=== PATIENT | female | born 1980 | race Two or more races ===

== ENCOUNTER 2018-09-17 15:37 | Inpatient (IN) | payer OTHER ==
[2018-09-17 17:14] VITALS: BMI 18.0
--- NOTE | 2018-09-17 18:08 | HP ---
CIWA Score - Admission Criteria [facility] Guidelines: Admission for Medically Managed Detox: Requires at least one of the followin. CIWA greater than 12 2. Seizures within the past 24 hours 3. Delirium tremens within the past 24 hours 4. Hallucinations within the past 24 hours 5. Acute intervention needed for co occurring medical disorder 6. Acute intervention needed for co occurring psychiatric disorder 7. Severe withdrawal that cannot be handled at a lower level of care (continued vomiting, continued diarrhea, abnormal vital signs) requiring intravenous medication and/or fluids 8. Admission ROS S - HPI Allergies/Adverse Reactions: Allergies Allergy/AdvReac Type Severity Reaction Status Date / Time No Known Allergies Allergy Verified 09/17/18 17:39 - Ebola screening Have you traveled outside of the country in the last 21 days: No Have you had contact with anyone from an Ebola affected area: No Have you been sick,other than usual withdrawal symptoms: No Do you have a fever: No Patient History - Patient Medical History Hx Asthma: Yes Hx Cardiac Disorders: No Hx Hypertension: No Hx Seizures: No Hx Diabetes: No Hx Gastrointestinal Disorders: No Hx Sexually Transmitted Disorders: No Hx Renal Disease (ESRD): No Hx Depression: Yes - Patient Surgical History Past Surgical History: No - PPD History Previous Implant?: No - Smoking Cessation Smoking history: Current every day smoker Have you smoked in the past 12 months: Yes Aproximately how many cigarettes per day: 10 - Substances Abused Alcohol Route: Oral Frequency: Daily Amount used: 1 PINT VODKA Age of first use: 35 Date of Last Use: 09/16/18 Crack Route: Smoking Frequency: Daily Amount used: $200 Age of first use: 22 Date of Last Use: 09/17/18 Heroin Route: Injection Frequency: Daily Amount used: 2- BUNDLE Age of first use: 16 Date of Last Use: 09/17/18 Admission Physical Exam S - Vital Signs Vital Signs: Vital Signs - 24 hr 09/17/18 16:35 Temperature 97.5 F L Pulse Rate 76 Respiratory 18 Rate Blood Pressure 109/64 BHS Breath Alcohol Content Breath Alcohol Content: 0 Urine Pregancy Test - Result Urine Test Results: Negative- NO Line Present Urine Drug Screen - Results Drug Screen Negative: No Urine Drug Screen Results: THC-Marijuana, ERASMO-Cocaine, OPI-Opiates, MTD- Methadone, OXY-Oxycodone, FEN-Fentanyl
--- NOTE | 2018-09-17 18:15 | HP ---
CIWA Score Nausea/Vomitin-Mild Nausea/No Vomiting Muscle Tremors: 2 Anxiety: 3 Agitation: 0-Normal Activity Paroxysmal Sweats: 3 Orientation: 0-Oriented Tacttile Disturbances: 0-None Auditory Disturbances: 0-None Visual Disturbances: 0-None Headache: 3-Moderate CIWA-Ar Total Score: 12 - Admission Criteria OASAS Guidelines: Admission for Medically Managed Detox: Requires at least one of the followin. CIWA greater than 12 2. Seizures within the past 24 hours 3. Delirium tremens within the past 24 hours 4. Hallucinations within the past 24 hours 5. Acute intervention needed for co occurring medical disorder 6. Acute intervention needed for co occurring psychiatric disorder 7. Severe withdrawal that cannot be handled at a lower level of care (continued vomiting, continued diarrhea, abnormal vital signs) requiring intravenous medication and/or fluids 8. Admission ROS [facility] Chief Complaint: ETOH WITHDRAWAL SYMPTOMS. Allergies/Adverse Reactions: Allergies Allergy/AdvReac Type Severity Reaction Status Date / Time No Known Allergies Allergy Verified 09/17/18 17:39 History of Present Illness: PATIENT PRESENTS WITH ETOH WITHDRAWAL SX. PATIENT STARTED DRINKING SINCE AGE 11. LAST DRINK THIS MORNING. PATIENT DRINKS 1 PINT OF VODKA DAILY. DRINKS FIRST THING IN THE MORNING AND BINGE DRINKING. PATIENT ALSO ON METHADONE 120MG, LAST DOSE TODAY. RN DOSE VERIFICATION PENDING. PATIENT DENIES HX OF SEIZURES, FALLS AND BLACKOUTS. PATIENT ALSO INJECTING HEROIN DAILY IN ADDITION TO HEROIN. LAST TIME SHE USED WAS TODAY. PATIENT INJECTS 1-2 BUNDLES DAILY. +COCAINE USE. PMH INCLUDES ANXIETY, DEPRESSION, HEP C (UNTREATED) AND ASTHMA. DENIES SI/HI AND SUICIDE ATTEMPTS. Exam Limitations: No Limitations - Ebola screening Have you traveled outside of the country in the last 21 days: No Have you had contact with anyone from an Ebola affected area: No Have you been sick,other than usual withdrawal symptoms: No Do you have a fever: No - Review of Systems Constitutional: Night Sweats, Changes in sleep, Unexplained wgt Loss EENT: reports: Nose Congestion Respiratory: reports: No Symptoms reported Cardiac: reports: No Symptoms Reported GI: reports: Diarrhea, Nausea, Poor Fluid Intake, Abdominal cramping : reports: No Symptoms Reported Musculoskeletal: reports: Back Pain Integumentary: reports: Sweating Neuro: reports: Headache Endocrine: reports: Unexplained Weight Loss Hematology: reports: No Symptoms Reported Psychiatric: reports: Anxious, Depressed Patient History - Patient Medical History Hx Anemia: No Hx Asthma: Yes Hx Chronic Obstructive Pulmonary Disease (COPD): No Hx Cancer: No Hx Cardiac Disorders: No Hx Congestive Heart Failure: No Hx Hypertension: No Hx Hypercholesterolemia: No Hx Pacemaker: No HX Cerebrovascular Accident: No Hx Seizures: No Hx Dementia: No Hx Diabetes: No Hx Gastrointestinal Disorders: No Hx Liver Disease: No Hx Genitourinary Disorders: No Hx Sexually Transmitted Disorders: No Hx Renal Disease (ESRD): No Hx Thyroid Disease: No Hx Human Immunodeficiency Virus (HIV): No Hx Hepatitis C: Yes (NOT TREATED) Hx Depression: Yes Hx Suicide Attempt: No Hx Bipolar Disorder: No Hx Schizophrenia: No - Patient Surgical History Past Surgical History: No Anesthesia Reaction: No - PPD History Previous Implant?: No PPD to be Administered?: Yes - Reproductive History Patient is a Female of Child Bearing Age (11 -55 yrs old): Yes Patient : No - Smoking Cessation Smoking history: Current every day smoker Have you smoked in the past 12 months: Yes Aproximately how many cigarettes per day: 10 Hx Chewing Tobacco Use: No Initiated information on smoking cessation: Yes 'Breaking Loose' booklet given: 09/17/18 - Substances Abused Alcohol Route: Oral Frequency: Daily Amount used: 1 PINT VODKA Age of first use: 35 Date of Last Use: 09/16/18 Crack Route: Smoking Frequency: Daily Amount used: $200 Age of first use: 22 Date of Last Use: 09/17/18 Heroin Route: Injection Frequency: Daily Amount used: 2- BUNDLE Age of first use: 16 Date of Last Use: 09/17/18 Family Disease History - Family Disease History Family History: Denies Admission Physical Exam S - Vital Signs Vital Signs: Vital Signs - 24 hr 09/17/18 16:35 Temperature 97.5 F L Pulse Rate 76 Respiratory 18 Rate Blood Pressure 109/64 - Physical General Appearance: Yes: Disheveled, Thin, Tremorous, Sweating, Anxious HEENTM: Yes: EOMI, Hearing grossly Normal, Normocephalic, Normal Voice, ARMANDO, Pharynx Normal Respiratory: Yes: Chest Non-Tender, Lungs Clear, Normal Breath Sounds, No Respiratory Distress, No Accessory Muscle Use Neck: Yes: No masses,lesions,Nodules, Supple, Trachea in good position Breast: Yes: Breast Exam Deferred Cardiology: Yes: Regular Rhythm, Regular Rate, S1, S2 Abdominal: Yes: Normal Bowel Sounds, Non Tender, Flat Genitourinary: Yes: Within Normal Limits Back: Yes: Normal Inspection, Muscle Spasm Musculoskeletal: Yes: full range of Motion, Gait Steady, Back pain Extremities: Yes: Normal Range of Motion, Non-Tender, Tremors 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, Fully Oriented, Alert, Motor Strength 5/5, Normal Response, Depressed Affect Integumentary: Yes: Normal Color, Warm, Moist, Track Parmar Lymphatic: Yes: Within Normal Limits - Diagnostic (1) Opioid dependence with withdrawal Current Visit: Yes Status: Acute (2) Cocaine dependence Current Visit: Yes Status: Chronic Qualifiers: Substance use status: uncomplicated Qualified Code(s): F14.20 - Cocaine dependence, uncomplicated (3) Tobacco use Current Visit: Yes Status: Chronic (4) Weight loss Current Visit: Yes Status: Acute (5) Asthma Current Visit: Yes Status: Chronic Qualifiers: Asthma severity: mild Asthma complication type: uncomplicated (6) Depressed affect Current Visit: Yes Status: Suspected (7) Methadone maintenance therapy patient Current Visit: Yes Status: Chronic Cleared for Admission [facility] - Detox or Rehab [facility] Level of Care: Medically Managed Detox Regimen/Protocol: Librium [facility] Breath Alcohol Content Breath Alcohol Content: 0 Urine Pregancy Test - Result Urine Test Results: Negative- NO Line Present Urine Drug Screen - Results Drug Screen Negative: No Urine Drug Screen Results: THC-Marijuana, ERASMO-Cocaine, OPI-Opiates, MTD- Methadone, OXY-Oxycodone, FEN-Fentanyl
[2018-09-17] MEDS ORDERED: NICOTINE POLACRILEX 2 MG GUM BC PRN (18:23)
[2018-09-17] MEDS ORDERED: guaiFENesin/D-METHORPHAN HB 10 ML UNIT-DOSE CUPS PO PRN (18:23)
[2018-09-17] MEDS ORDERED: LOPERAMIDE HCL 2 MG CAPSULE PO PRN (18:23)
[2018-09-17] MEDS ORDERED: MAG HYDROX/AL HYDROX/SIMETH 30 ML UNIT-DOSE CUP PO PRN (18:23)
[2018-09-17] MEDS ORDERED: MAGNESIUM HYDROX 2400MG/30ML ORAL SUSPENSION 30 ML CUP PO PRN (18:23)
[2018-09-17] MEDS ORDERED: IBUPROFEN 400 MG TABLET (FP) PO PRN (18:23)
[2018-09-17] MEDS ORDERED: MAGNESIUM CITRATE 300 ML BOTTLE PO PRN (18:23)
[2018-09-17] MEDS ORDERED: MENTHOL/PHENOL 1 EACH UD MM PRN (18:23)
[2018-09-17] MEDS ORDERED: P-EPHED 60MG/TRIPROLIDI 2.5MG TABLET PO PRN (18:23)
[2018-09-17] MEDS ORDERED: chlordiazePOXIDE HCL 25 MG CAPSULE PO PRN (18:25)
[2018-09-17] MEDS ORDERED: MELATONIN 5 MG TABLETS PO PRN (22:00)
[2018-09-17] MEDS: THIAMINE HCL 100 MG TABLET (FP) PO SCH (22:15)
[2018-09-17] MEDS: chlordiazePOXIDE HCL 25 MG CAPSULE PO SCH (22:15)
[2018-09-18] MEDS: chlordiazePOXIDE HCL 25 MG CAPSULE PO SCH ×4 (05:29→22:28)
--- NOTE | 2018-09-18 10:41 | PN ---
S CIWA - CIWA Score Muscle Tremors: None Anxiety: 1-Mildly Anxious Agitation: 1-Slight > Activity Paroxysmal Sweats: No Perspiration Orientation: 0-Oriented Tacttile Disturbances: 0-None Auditory Disturbances: 0-None Visual Disturbances: 0-None Headache: 0-None Present BHS Progress Note (SOAP) Subjective: Pt states she is tired after not sleeping for several days prior to admission here. Says librium is fine for her.a/p: O: Vital Signs - 24 hr 09/17/18 09/17/18 09/18/18 16:35 22:50 00:30 Temperature 97.5 F L 98 F Pulse Rate 76 68 Respiratory 18 18 18 Rate Blood Pressure 109/64 106/63 09/18/18 09/18/18 09/18/18 03:30 07:13 09:57 Temperature 98.0 F Pulse Rate 66 78 Respiratory 16 18 18 Rate Blood Pressure 98/54 L 90/51 L a/p:AUD- continue detox protocol Continue methadone 120mg- dose verified
[2018-09-18] MEDS: METHADONE HCL 40 MG DISPERSABLE TABLET PO SCH (10:52)
[2018-09-18] MEDS: NICOTINE 21 MG/24 HOURS TOPICAL PATCH TD SCH (10:53)
[2018-09-18] MEDS: PRENATAL VITAMINS W/ FOLIC ACID TABLET (FP) PO SCH (10:53)
[2018-09-18 11:05] LABS: ALBUMIN 3.1 g/dl (3.4-5.0); ALK PHOS 46 U/L (45-117); ANION GAP 6 MMOL/L (8-16); BILIRUBIN,TOTAL 0.3 mg/dL (0.2-1); BLOOD UREA NITROGEN 20 mg/dL (7-18); CALCIUM 8.6 mg/dL (8.5-10.1); CHLORIDE 108 mmol/L (98-107); CO2 25 mmol/L (21-32); CREATININE 0.7 mg/dL (0.55-1.3); GLUCOSE,RANDOM 139 mg/dL (74-106); POTASSIUM 4.1 mmol/L (3.5-5.1); SGOT/AST 9 U/L (15-37); SGPT/ALT 15 U/L (13-61); SODIUM 140 mmol/L (136-145); TOT PROT 6.7 g/dl (6.4-8.2)
[2018-09-18 11:08] LABS: HEMOGLOBIN 12.4 GM/dL (10.7-15.3); MCHC 32.5 g/dl (32.0-36.0)
[2018-09-18 11:10] LABS: URINE APPEARANCE TURBID; URINE BILIRUBIN NEGATIVE (<2.0 mg/dL); URINE COLOR YELLOW; URINE GLUCOSE (UA) NEGATIVE (NEGATIVE); URINE KETONE NEGATIVE (NEGATIVE); URINE LEUK ESTERASE TRACE (NEGATIVE); URINE NITRITE NEGATIVE (NEGATIVE); URINE PROTEIN NEGATIVE (NEGATIVE)
[2018-09-18 11:12] LABS: HEMATOCRIT 38.3 % (32.4-45.2); MCH 28.6 pg (25.7-33.7); MEAN PLT VOLUME 8.6 fl (7.5-11.1); PLATELET COUNT 245 K/MM3 (134-434); RBC 4.36 M/mm3 (3.60-5.2); RDW 12.6 % (11.6-15.6)
[2018-09-18 11:16] LABS: EPI CELLS FEW /HPF (FEW); URINE BACTERIA MANY /hpf (NONE SEEN); URINE MUCUS FEW
--- NOTE | 2018-09-18 17:10 | CONSULT ---
[facility] Psychiatric Consult - Data Date of interview: 09/18/18 Admission source: [facility] Identifying data: First admission to [facility] for this 38 y/o female seeking detoxification treatment, at [address] [place] [address], for heroin, cocaine (crack) and alcohol dependence. Patient introduces self as marrried, a mother of seven, homeless, unemployed and supported on odd jobs. Substance Abuse History: Confirmed by the patient. Details in current [facility] report : Smoking history: Current every day smoker. Have you smoked in the past 12 months: Yes. Aproximately how many cigarettes per day: 10. Hx Chewing Tobacco Use: No. Initiated information on smoking cessation: Yes. 'Breaking Loose' booklet given: 09/17/18. - Substances Abused. Alcohol. Route: Oral. Frequency: Daily. Amount used: 1 PINT VODKA. Age of first use: 35. Date of Last Use: 09/16/18. Crack. Route: Smoking. Frequency: Daily. Amount used: $200. Age of first use: 22. Date of Last Use: 09/17/18. Heroin. Route: Injection. Frequency: Daily. Amount used: 2- BUNDLE. Age of first use: 16. Date of Last Use: 09/17/18 Medical History: Hepatitis C, sarcoidosis and a history of four sections. Psychiatric History: No reported history of psyciatric hospitalizations. Patient states that she has been diagnosed with MDD and Anxiety Diosrder. Medicated with buspar 7.5 mg/bid + trazodone 50 mg/hs + zoloft 100 mg/day + topamax 100 mg/day (migraine headaches). Ms declares that she sees a psychiatrist at the [facility] outpatient program in [facility]. She is also on methadone maintenance (120 mg/day) at the [facility] program in [facility]. Patient denies history of suicide attempts. Physical/Sexual Abuse/Trauma History: Not discussed. Patient declines. Additional Comment: Urine Drug Screen Results: THC-Marijuana, ERASMO-Cocaine, OPI- Opiates, MTD-Methadone, OXY-Oxycodone, FEN-Fentanyl. Noted. Mental Status Exam - Mental Status Exam Alert and Oriented to: Time, Place, Person Cognitive Function: Grossly Intact Patient Appearance: Unkempt, Disheveled (thin habitus) Mood: Nervous, Withdrawn Affect: Constricted Patient Behavior: Fatigued (dozing during interview), Cooperative Speech Pattern: Clear Voice Loudness: Normal Thought Process: Goal Oriented Thought Disorder: Not Present Hallucinations: Denies Suicidal Ideation: Denies Homicidal Ideation: Denies Insight/Judgement: Poor Appetite: Fair Muscle strength/Tone: Normal Gait/Station: Normal Psychiatric Findings - Problem List ([place] 1, 2,3) (1) Opioid dependence with withdrawal Current Visit: Yes Status: Acute (2) Cocaine dependence Current Visit: Yes Status: Chronic Qualifiers: Substance use status: uncomplicated Qualified Code(s): F14.20 - Cocaine dependence, uncomplicated (3) Opioid dependence on agonist therapy Current Visit: Yes Status: Chronic (4) Insomnia Current Visit: Yes Status: Chronic (5) Substance induced mood disorder Current Visit: Yes Status: Acute - Initial Treatment Plan Initial Treatment Plan: Psychoeducation. Sleep hygiene. Detoxification in progress. AA/NA meetings. Group and supportive therapy. Medical team will address issue of poor nutritional status. Resume buspar 7.5 mg po bid + zoloft 100 mg po daily. Trazodone held at patient's specific request. Insomnia is addressed with melatonin at bedside. Side effects/benefits of each medication are discussed with the patient. Ms Saunders is in agreement with this plan of care. Observation.
[2018-09-18] MEDS ORDERED: traZODone HCL 50 MG TABLET (FP) PO SCH (22:00)
[2018-09-18] MEDS: THIAMINE HCL 100 MG TABLET (FP) PO SCH (22:28)
[2018-09-19] MEDS: chlordiazePOXIDE HCL 25 MG CAPSULE PO SCH ×3 (05:35→17:36)
[2018-09-19] MEDS: METHADONE HCL 40 MG DISPERSABLE TABLET PO SCH (05:35)
[2018-09-19] MEDS: ACETAMINOPHEN 325 MG TABLET (FP) PO PRN (05:38)
[2018-09-19] MEDS: SERTRALINE HCL 50 MG TABLET (FP) PO SCH (11:01)
[2018-09-19] MEDS: PRENATAL VITAMINS W/ FOLIC ACID TABLET (FP) PO SCH (11:02)
[2018-09-19] MEDS: NICOTINE 21 MG/24 HOURS TOPICAL PATCH TD SCH (11:04)
--- NOTE | 2018-09-19 12:35 | EKG ---
Test Reason : Blood Pressure : / mmHG Vent. Rate : 068 BPM Atrial Rate : 068 BPM P-R Int : 124 ms QRS Dur : 086 ms QT Int : 430 ms P-R-T Axes : 070 080 064 degrees QTc Int : 457 ms NORMAL SINUS RHYTHM NORMAL ECG NO PREVIOUS ECGS AVAILABLE Confirmed by RUPA WHITE MD ([id number]) on 09/19/2018 12:35:29 PM Referred By: Confirmed By:RUPA WHITE MD
--- NOTE | 2018-09-19 14:47 | PN ---
S CIWA - CIWA Score Nausea/Vomitin-Mild Nausea/No Vomiting Muscle Tremors: 3 Anxiety: 2 Agitation: 1-Slight > Activity Paroxysmal Sweats: 1-Minimal Palms Moist Orientation: 0-Oriented Tacttile Disturbances: 0-None Auditory Disturbances: 0-None Visual Disturbances: 0-None Headache: 1-Very Mild CIWA-Ar Total Score: 9 S Progress Note (SOAP) Subjective: tremor sweat anxiety restlessness Objective: 09/19/18 14:49 Vital Signs Temperature 97.5 F L 09/19/18 10:57 Pulse Rate 73 09/19/18 10:57 Respiratory Rate 18 09/19/18 10:57 Blood Pressure 99/58 L 09/19/18 10:57 O2 Sat by Pulse Oximetry (%) Laboratory Last Values WBC 5.0 K/mm3 (4.0-10.0) 09/18/18 07:40 RBC 4.36 M/mm3 (3.60-5.2) 09/18/18 07:40 Hgb 12.4 GM/dL (10.7-15.3) 09/18/18 07:40 Hct 38.3 % (32.4-45.2) 09/18/18 07:40 MCV 88.0 fl (80-96) 09/18/18 07:40 MCH 28.6 pg (25.7-33.7) 09/18/18 07:40 MCHC 32.5 g/dl (32.0-36.0) 09/18/18 07:40 RDW 12.6 % (11.6-15.6) 09/18/18 07:40 Plt Count 245 K/MM3 (134-434) 09/18/18 07:40 MPV 8.6 fl (7.5-11.1) 09/18/18 07:40 Sodium 140 mmol/L (136-145) 09/18/18 07:40 Potassium 4.1 mmol/L (3.5-5.1) 09/18/18 07:40 Chloride 108 mmol/L (98-107) H 09/18/18 07:40 Carbon Dioxide 25 mmol/L (21-32) 09/18/18 07:40 Anion Gap 6 MMOL/L (8-16) L 09/18/18 07:40 BUN 20 mg/dL (7-18) H 09/18/18 07:40 Creatinine 0.7 mg/dL (0.55-1.3) 09/18/18 07:40 Creat Clearance w eGFR > 60 (>60) 09/18/18 07:40 Random Glucose 139 mg/dL (74-106) H 09/18/18 07:40 Calcium 8.6 mg/dL (8.5-10.1) 09/18/18 07:40 Total Bilirubin 0.3 mg/dL (0.2-1) 09/18/18 07:40 AST 9 U/L (15-37) L 09/18/18 07:40 ALT 15 U/L (13-61) 09/18/18 07:40 Alkaline Phosphatase 46 U/L (45-117) 09/18/18 07:40 Total Protein 6.7 g/dl (6.4-8.2) 09/18/18 07:40 Albumin 3.1 g/dl (3.4-5.0) L 09/18/18 07:40 Urine Color Yellow 09/18/18 08:50 Urine Appearance Turbid 09/18/18 08:50 Urine pH 5.0 (5.0-8.0) 09/18/18 08:50 Ur Specific [place] 1.029 (1.010-1.035) 09/18/18 08:50 Urine Protein Negative (NEGATIVE) 09/18/18 08:50 Urine Glucose (UA) Negative (NEGATIVE) 09/18/18 08:50 Urine Ketones Negative (NEGATIVE) 09/18/18 08:50 Urine Blood Negative (NEGATIVE) 09/18/18 08:50 Urine Nitrite Negative (NEGATIVE) 09/18/18 08:50 Urine Bilirubin Negative (<2.0 mg/dL) 09/18/18 08:50 Urine Urobilinogen 2.0 mg/dL (0.2-1.0) H 09/18/18 08:50 Ur Leukocyte Esterase Trace (NEGATIVE) 09/18/18 08:50 Urine WBC (Auto) None /hpf (3-5) 09/18/18 08:50 Urine RBC (Auto) 2 /hpf (0-3) 09/18/18 08:50 Ur Epithelial Cells Few /HPF (FEW) 09/18/18 08:50 Urine Bacteria Many /hpf (NONE SEEN) 09/18/18 08:50 Urine Mucus Few 09/18/18 08:50 lab noted Assessment: 09/19/18 14:50 withdrawal sx Plan: continue detox
[2018-09-19] MEDS: THIAMINE HCL 100 MG TABLET (FP) PO SCH (22:16)
[2018-09-19] MEDS: chlordiazePOXIDE 5 MG CAPSULE PO SCH (22:16)
[2018-09-20] MEDS: METHADONE HCL 40 MG DISPERSABLE TABLET PO SCH (05:21)
[2018-09-20] MEDS: chlordiazePOXIDE 5 MG CAPSULE PO SCH ×3 (05:22→17:17)
[2018-09-20 09:13] LABS: RPR REACTIVE 1:1 (NONREACTIVE)
[2018-09-20] MEDS: SERTRALINE HCL 50 MG TABLET (FP) PO SCH (10:20)
[2018-09-20] MEDS: PRENATAL VITAMINS W/ FOLIC ACID TABLET (FP) PO SCH (10:20)
[2018-09-20] MEDS: NICOTINE 21 MG/24 HOURS TOPICAL PATCH TD SCH (10:21)
[2018-09-20] MEDS: ACETAMINOPHEN 325 MG TABLET (FP) PO PRN (10:22)
--- NOTE | 2018-09-20 12:06 | PN ---
BHS Progress Note (SOAP) Subjective: diarrhea headache stomach ache Objective: 09/20/18 12:02 Vital Signs Temperature 97.1 F L 09/20/18 09:08 Pulse Rate 97 H 09/20/18 09:08 Respiratory Rate 16 09/20/18 09:08 Blood Pressure 101/70 09/20/18 09:08 O2 Sat by Pulse Oximetry (%) aaox3 ambulating no acute distress Assessment: 09/20/18 12:03 withdrawal sx Plan: continue detox increase fluids tylenol/motrin prn d/c in am
[2018-09-20] MEDS ORDERED: SUMAtriptan SUCCINATE 25 MG TABLET PO PRN (12:07)
[2018-09-20 13:19] LABS: TREPONEMA ANTIBODY NON REACTIVE (NONREACTIVE)
[2018-09-20] MEDS: chlordiazePOXIDE HCL 10 MG CAPSULE PO SCH (22:32)
[2018-09-20] MEDS: THIAMINE HCL 100 MG TABLET (FP) PO SCH (22:32)
[2018-09-21] MEDS: METHADONE HCL 40 MG DISPERSABLE TABLET PO SCH (05:49)
[2018-09-21] MEDS: chlordiazePOXIDE HCL 10 MG CAPSULE PO SCH ×2 (05:49→10:17)
--- NOTE | 2018-09-21 08:56 | DS ---
[facility] Detox Discharge Summary Admission Date: 09/17/18 Discharge Date: 09/21/18 - History Present History: Alcohol Dependence, Cocaine Dependence - Physical Exam Results Vital Signs: Vital Signs Temperature 97.7 F 09/21/18 06:15 Pulse Rate 70 09/21/18 06:15 Respiratory Rate 18 09/21/18 06:15 Blood Pressure 111/59 L 09/21/18 06:15 O2 Sat by Pulse Oximetry (%) - Treatment Hospital Course: Detox Protocol Followed, Detoxed Safely, Responded well, Discharged Condition Good, Rehab Referral Accepted - Medication Discharge Medications: Ambulatory Orders Buspirone HCl [Buspar -] 7.5 mg PO BID 09/17/18 Sertraline HCl [Zoloft] 200 mg PO DAILY 09/17/18 Topiramate [Topamax] 100 mg PO DAILY 09/17/18 traZODone HCL [Trazodone HCl] 50 mg PO HS 09/17/18 - Diagnosis (1) Alcohol use disorder Current Visit: Yes Status: Acute (2) Opioid dependence with withdrawal Current Visit: Yes Status: Chronic (3) Substance induced mood disorder Current Visit: Yes Status: Acute (4) Weight loss Current Visit: Yes Status: Acute (5) Asthma Current Visit: Yes Status: Chronic Qualifiers: Asthma severity: mild Asthma complication type: uncomplicated (6) Cocaine dependence Current Visit: Yes Status: Chronic Qualifiers: Substance use status: uncomplicated Qualified Code(s): F14.20 - Cocaine dependence, uncomplicated (7) Insomnia Current Visit: Yes Status: Chronic (8) Methadone maintenance therapy patient Current Visit: Yes Status: Chronic (9) Opioid dependence on agonist therapy Current Visit: Yes Status: Chronic (10) Tobacco use Current Visit: Yes Status: Chronic (11) Depressed affect Current Visit: Yes Status: Suspected - AMA Did Patient Leave Against Medical Advice: No (referred to [facility])
[2018-09-21 09:32] VITALS: BP 112/77; PULSE 84; TEMP 99.5
[2018-09-21] MEDS: PRENATAL VITAMINS W/ FOLIC ACID TABLET (FP) PO SCH (10:17)
[2018-09-21] MEDS: SERTRALINE HCL 50 MG TABLET (FP) PO SCH (10:17)
[2018-09-21] MEDS: NICOTINE 21 MG/24 HOURS TOPICAL PATCH TD SCH (10:18)
== END 2018-09-21 12:45 | disposition home or self-care (01) | DRG 773 ==
LOC: YASAS 15:37 → Y6N 19:15
PROVIDERS: ADMIT Psychiatry & Neurology Psychiatry; ATTEND Psychiatry & Neurology Psychiatry
PROC: HZ2ZZZZ Detoxification Services for Substance Abuse Treatment (ICD-10-PCS; principal; 2018-09-17)
DX: F11.23 Opioid dependence with withdrawal (principal); F10.230 Alcohol dependence with withdrawal, uncomplicated; F14.20 Cocaine dependence, uncomplicated; F17.210 Nicotine dependence, cigarettes, uncomplicated; F19.24 Other psychoactive substance dependence with psychoactive substance-induced mood disorder; F32.9 Major depressive disorder, single episode, unspecified; J45.909 Unspecified asthma, uncomplicated; G47.00 Insomnia, unspecified
CPT/HCPCS: 36415; 80053; 81003; 81015; 85027; 86593; 86780; 93005; 93010

== ENCOUNTER 2019-06-09 13:06 | Inpatient (IN) | payer OTHER ==
[2019-06-09 17:05] VITALS: BMI 20.7
--- NOTE | 2019-06-09 18:06 | HP ---
COWS - Scale Resting Pulse: 0= MI 80 or Below Sweatin= No chills or Flushing Restless Observation: 0= Sits Still Pupil Size: 0= Normal to Room Light Bone or Joint Aches: 2= Severe Diffuse Aches Runny Nose/ Eye Tearin= None GI Upset > 30mins: 1= Stomach Cramp Tremor Observation: 2= Slight Tremor Visible Yawning Observation: 0= None Anxiety or Irritability: 2=Irritable/Anxious Goose Flesh Skin: 0=Smooth Skin COWS Score: 7 CIWA Score Nausea/Vomitin-Mild Nausea/No Vomiting Muscle Tremors: 4-Moderate,w/Arms Extend Anxiety: 3 Agitation: 3 Paroxysmal Sweats: 1-Minimal Palms Moist Orientation: 0-Oriented Tacttile Disturbances: 0-None Auditory Disturbances: 0-None Visual Disturbances: 1-Very Mild Sensitivity Headache: 0-None Present CIWA-Ar Total Score: 13 - Admission Criteria [facility]ASAS Guidelines: Admission for Medically Managed Detox: Requires at least one of the followin. CIWA greater than 12 2. Seizures within the past 24 hours 3. Delirium tremens within the past 24 hours 4. Hallucinations within the past 24 hours 5. Acute intervention needed for co occurring medical disorder 6. Acute intervention needed for co occurring psychiatric disorder 7. Severe withdrawal that cannot be handled at a lower level of care (continued vomiting, continued diarrhea, abnormal vital signs) requiring intravenous medication and/or fluids 8. Admission [facility] Chief Complaint: detox from heroin, crack, PCP, EtOH, xanax Allergies/Adverse Reactions: Allergies Allergy/AdvReac Type Severity Reaction Status Date / Time No Known Allergies Allergy Verified 06/09/19 16:51 History of Present Illness: 39F w/ pmh migraines(topiramate), asthma(ventolin), anxiety, depression, h/o endocarditis, HepC, methadone([facility], 135mg) presenting to [facility] for detox from heroin, crack cocaine. Uses heroin(IV) $40-50 daily, started 16y/o. Last use ~0600. Never OD'd. Uses $150 cocaine(IV), started at 12 y/o. Last usage was ~0600. Had abscess in RUE 10ys prior. Smokes PCP x1bag, q10d. Xanax ~4mg QOD, had it prescribed but now brought from street. Drinks ~1pint of vodka daily, ~ 1ys. Last EtOH usage was ~0500. Denies blackouts, seizures. Denies scleral icterus, hematemesis, hematchezia, ascites. Smokes MJ daily. Smokes 6cigarettes daily. Was substance free for 7ys(~[id number]). LMP ~05/14/19. Denies condom usage. Incarcerated for 6mo, 15ys prior, for drug related crime. Homeless x6mo. 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 - Ebola screening Have you traveled outside of the country in the last 21 days: No (N) Have you had contact with anyone from an Ebola affected area: No Do you have a fever: No - Review of Systems Constitutional: Chills EENT: denies: Blurred Vision, Double Vision Respiratory: denies: Cough, Wheezing Cardiac: denies: Chest Pain, Palpitations GI: denies: Abdominal Distended, Constipated, Diarrhea, Nausea, Vomiting : denies: Burning, Dysuria Musculoskeletal: reports: Back Pain, Joint Pain Integumentary: reports: No Symptoms Reported Neuro: denies: Headache, Numbness, Dizziness Hematology: denies: Anemia, Blood Clots Patient History - Patient Medical History Hx Anemia: No Hx Asthma: Yes Hx Chronic Obstructive Pulmonary Disease (COPD): No Hx Cancer: No Hx Cardiac Disorders: No Hx Congestive Heart Failure: No Hx Hypertension: No Hx Hypercholesterolemia: No Hx Pacemaker: No HX Cerebrovascular Accident: No Hx Seizures: No Hx Dementia: No Hx Diabetes: No Hx Gastrointestinal Disorders: No Hx Liver Disease: No Hx Genitourinary Disorders: No Hx Sexually Transmitted Disorders: No Hx Renal Disease (ESRD): No Hx Thyroid Disease: No Hx Human Immunodeficiency Virus (HIV): No Hx Hepatitis C: Yes (NOT TREATED) Hx Depression: Yes Hx Suicide Attempt: No Hx Bipolar Disorder: No Hx Schizophrenia: No - Patient Surgical History Past Surgical History: No Anesthesia Reaction: No - PPD History Date: 09/19/18 - Reproductive History Patient is a Female of Child Bearing Age (11 -55 yrs old): Yes Last Menstrual Period: 05/14/19 Patient : No - Smoking Cessation Smoking history: Current every day smoker Have you smoked in the past 12 months: Yes Aproximately how many cigarettes per day: 10 Hx Chewing Tobacco Use: No Initiated information on smoking cessation: No - Substance & Tx. History Hx Alcohol Use: Yes Substance Use Type: Alcohol, Cocaine, Heroin, Marijuana - Substances abused Heroin Substance route: Injection Frequency: Daily Amount used: 40 to 50 dollars Age of first use: 16 Date of last use: 06/09/19 Cocaine Substance route: Injection Frequency: Daily Amount used: 150 to 200 dollars Age of first use: 14 Date of last use: 06/09/19 PCP Substance route: Smoking Frequency: 1-2 times per week Amount used: 10 dollars Age of first use: 17 Date of last use: 05/02/19 Alcohol Substance route: Oral Frequency: Daily Amount used: 1 pint of vodka Age of first use: 12 Date of last use: 06/09/19 Alprazolam (Xanax) Substance route: Oral Frequency: 3-6 times per week Amount used: 2 mg Age of first use: 29 Date of last use: 06/07/19 Marijuana/Hashish Substance route: Smoking Frequency: Daily Amount used: 1 blunt Age of first use: 9 Date of last use: 06/09/19 Family Disease History - Family Disease History Family Disease History: Diabetes: Grandparent Admission Physical Exam S - Vital Signs Vital Signs: Vital Signs - 24 hr 06/09/19 16:50 Temperature 96.5 F L Pulse Rate 64 Respiratory 16 Rate Blood Pressure 118/76 - Physical General Appearance: Yes: No Apparent Distress, Thin, Anxious HEENTM: No: Pale Conjunctivae R, Pale Conjunctivae L, Scleral Ictenus R, Scleral Ictenus L Respiratory: Yes: Lungs Clear. No: No Accessory Muscle Use, Rhonchi, Wheezing Neck: Yes: Within Normal Limits, No masses,lesions,Nodules, Trachea in good position Cardiology: Yes: Regular Rhythm, Regular Rate, S1, S2. No: Murmur Abdominal: Yes: Non Tender, Soft. No: Distended, Guarding Musculoskeletal: Yes: full range of Motion Extremities: Yes: Other (well-healed scars of the ventral and dorsal surfaces of BLE, no areas of tenderness or erythema) Neurological: Yes: Fully Oriented, Alert Integumentary: Yes: Dry, Warm Breathalyzer - Breathalyzer Breathalyzer: 0 Urine Drug Screen - Test Device Lot number: [id number] Expiration date: 03/04/21 - Control Is test valid?: Yes - Results Drug screen NEGATIVE: No Urine drug screen results: THC-Marijuana, ERASMO-Cocaine, FEN-Fentanyl, MOP-Opiates , MTD-Methadone Inpatient Rehab Admission - Rehab Decision to Admit Inpatient rehab admission?: No
--- NOTE | 2019-06-09 18:25 | PN ---
"Teaching Attending Note Name of Resident: Geoffrey Breaux ATTENDING PHYSICIAN STATEMENT I saw and evaluated the patient. I reviewed the resident's note and discussed the case with the resident. I agree with the resident's findings and plan as documented. SUBJECTIVE: pt here requesting detox from etoh use , reports 1 pint/day , current symptoms as above , denies blackouts or seizures . pmhx migraines(topiramate), asthma(ventolin), anxiety, depression, h/o endocarditis, HepC, methadone([facility], 135mg) heroin(IV) $40-50 daily, started 16y/o.h/o abscess 10 yrs ago Last use today , denies OD $150 cocaine(IV), started at 12 y/o.latest use today . PCP x1bag, q10d. Xanax ~4mg QOD illicit use. cannabis : daily tobacco : daily . Smokes 6cigarettes daily. Sober 7 years [id number]. LMP ~05/14/19. upt neg OBJECTIVE: wnwd , drowsy This report was requested by: Debi Carrion | Reference #: [id number] There are no results for the search terms that you entered. Vital Signs - 24 hr 06/09/19 16:50 Temperature 96.5 F L Pulse Rate 64 Respiratory 16 Rate Blood Pressure 118/76 ASSESSMENT AND PLAN: opioid use on agonist therapy benzodiazepine abuse, episodic ( by history ) cocaine dependence alcohol dependence - Librium detox nicotine dependence."
[2019-06-09] MEDS ORDERED: hydrOXYzine PAMOATE 25 MG CAPSULE (FP) PO PRN (18:35)
[2019-06-09] MEDS ORDERED: MAG HYDROX/AL HYDROX/SIMETH 30 ML UNIT-DOSE CUP PO PRN (18:35)
[2019-06-09] MEDS ORDERED: MELATONIN 5 MG TABLETS PO PRN (18:35)
[2019-06-09] MEDS ORDERED: MAGNESIUM CITRATE 300 ML BOTTLE PO PRN (18:35)
[2019-06-09] MEDS ORDERED: METHOCARBAMOL 500 MG TABLET PO PRN (18:35)
[2019-06-09] MEDS ORDERED: chlordiazePOXIDE HCL 10 MG CAPSULE PO PRN (18:35)
[2019-06-09] MEDS ORDERED: MENTHOL/PHENOL 1 EACH UD MM PRN (18:35)
[2019-06-09] MEDS ORDERED: NICOTINE POLACRILEX 4 MG GUM BUC PRN (18:35)
[2019-06-09] MEDS ORDERED: ACETAMINOPHEN 325 MG TABLET (FP) PO PRN ×2 (18:35)
[2019-06-09] MEDS ORDERED: MAGNESIUM HYDROX 2400MG/30ML ORAL SUSPENSION 30 ML CUP PO PRN (18:35)
[2019-06-09] MEDS ORDERED: BISMUTH SUBSALICYLATE 524 MG/30 ML UD PO PRN (18:35)
[2019-06-09] MEDS ORDERED: IBUPROFEN 400 MG TABLET (FP) PO PRN (18:35)
[2019-06-09] MEDS: THIAMINE HCL 100 MG TABLET (FP) PO SCH (22:13)
[2019-06-09] MEDS: chlordiazePOXIDE HCL 25 MG CAPSULE PO SCH (22:13)
[2019-06-10] MEDS: chlordiazePOXIDE HCL 25 MG CAPSULE PO SCH ×3 (05:48→22:22)
[2019-06-10] MEDS ORDERED: METHADONE HCL 10 MG TABLET PO SCH (06:00)
[2019-06-10] MEDS ORDERED: METHADONE HCL 10 MG TABLET ONE (09:13)
[2019-06-10] MEDS ORDERED: METHADONE HCL 5 MG TABLET ONE (09:13)
[2019-06-10] MEDS ORDERED: METHADONE HCL 40 MG DISPERSABLE TABLET ONE (09:14)
[2019-06-10] MEDS: METHADONE 120 MG, METHADONE 10 MG, METHADONE 5 MG PO SCH (09:43)
[2019-06-10] MEDS: PRENATAL VITAMINS W/ FOLIC ACID TABLET (FP) PO SCH (09:44)
[2019-06-10] MEDS: TOPIRAMATE 100 MG TABLET PO SCH (09:44)
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
[2019-06-10 12:08] LABS: HEMATOCRIT 36.9 % (32.4-45.2); HEMOGLOBIN 12.7 GM/dL (10.7-15.3); MCH 30.9 pg (25.7-33.7); MCHC 34.4 g/dl (32.0-36.0); MEAN CELL VOLUME 89.8 fl (80-96); MEAN PLT VOLUME 8.5 fl (7.5-11.1); PLATELET COUNT 251 K/MM3 (134-434); RBC 4.11 M/mm3 (3.60-5.2); RDW 12.9 % (11.6-15.6); WHITE BLOOD COUNT 5.4 K/mm3 (4.0-10.0)
[2019-06-10 12:09] LABS: ALBUMIN 3.4 g/dl (3.4-5.0); BILIRUBIN,TOTAL 0.5 mg/dL (0.2-1); BLOOD UREA NITROGEN 14.8 mg/dL (7-18); CREATININE 0.9 mg/dL (0.55-1.3); POTASSIUM 3.7 mmol/L (3.5-5.1); TOT PROT 6.8 g/dl (6.4-8.2)
[2019-06-10] MEDS: SERTRALINE HCL 50 MG TABLET (FP) PO SCH (12:33)
[2019-06-10 13:41] LABS: RPR REACTIVE 1:1 (NONREACTIVE)
--- NOTE | 2019-06-10 14:12 | PN ---
[facility] CIWA - CIWA Score Nausea/Vomitin-No Nausea/No Vomiting Muscle Tremors: 3 Anxiety: 2 Agitation: 3 Paroxysmal Sweats: 3 Orientation: 0-Oriented Tacttile Disturbances: 0-None Auditory Disturbances: 0-None Visual Disturbances: 0-None Headache: 0-None Present CIWA-Ar Total Score: 11 S Progress Note (SOAP) Subjective: agitation sweats shakes interrupted sleep body aches Objective: 06/10/19 14:12 Vital Signs Temperature 98.1 F 06/10/19 09:40 Pulse Rate 68 06/10/19 09:40 Respiratory Rate 18 06/10/19 09:40 Blood Pressure 100/54 L 06/10/19 09:40 O2 Sat by Pulse Oximetry (%) Laboratory Tests 06/09/19 06/10/19 06/10/19 17:33 08:30 08:30 WBC 5.4 RBC 4.11 Hgb 12.7 Hct 36.9 MCV 89.8 MCH 30.9 MCHC 34.4 RDW 12.9 Plt Count 251 MPV 8.5 Sodium 143 Potassium 3.7 Chloride 106 Carbon Dioxide 27 Anion Gap 10 BUN 14.8 Creatinine 0.9 Est GFR (CKD-EPI)AfAm 92.70 Est GFR (CKD-EPI)NonAf 79.98 Random Glucose 81 Calcium 9.0 Total Bilirubin 0.5 AST 12 L ALT 17 Alkaline Phosphatase 42 L Total Protein 6.8 Albumin 3.4 POC Urine HCG, Qual Negative RPR Titer 06/10/19 08:30 WBC RBC Hgb Hct MCV MCH MCHC RDW Plt Count MPV Sodium Potassium Chloride Carbon Dioxide Anion Gap BUN Creatinine Est GFR (CKD-EPI)AfAm Est GFR (CKD-EPI)NonAf Random Glucose Calcium Total Bilirubin AST ALT Alkaline Phosphatase Total Protein Albumin POC Urine HCG, Qual RPR Titer Reactive 1:1 H labs noted aaox3 ambulating no acute distress Assessment: 06/10/19 14:12 withdrawal sx Plan: continue detox increase fluids
[2019-06-10 16:29] LABS: TREPONEMA ANTIBODY NON REACTIVE (NONREACTIVE)
[2019-06-10] MEDS: QUEtiapine FUMARATE 50 MG TABLET PO SCH (22:22)
[2019-06-10] MEDS: THIAMINE HCL 100 MG TABLET (FP) PO SCH (22:22)
--- NOTE | 2019-06-11 02:07 | PN ---
[facility] Progress Note Note: Abnormal Lab Results 06/10/19 08:30 RPR Titer Reactive 1:1 H T.pallidum Ab (MHA) Non reactive (NONREACTIVE) Labs reviewed. No previous change in RPR/MHA from 09/18/18.
[2019-06-11] MEDS ORDERED: METHADONE HCL 5 MG TABLET ONE (04:37)
[2019-06-11] MEDS ORDERED: METHADONE HCL 40 MG DISPERSABLE TABLET ONE (04:38)
[2019-06-11] MEDS ORDERED: METHADONE HCL 10 MG TABLET ONE (04:38)
[2019-06-11] MEDS: chlordiazePOXIDE 5 MG CAPSULE PO SCH ×3 (05:39→22:22)
[2019-06-11] MEDS: METHADONE 120 MG, METHADONE 10 MG, METHADONE 5 MG PO SCH (05:40)
[2019-06-11] MEDS: PRENATAL VITAMINS W/ FOLIC ACID TABLET (FP) PO SCH (10:39)
[2019-06-11] MEDS: TOPIRAMATE 100 MG TABLET PO SCH (10:39)
[2019-06-11] MEDS: SERTRALINE HCL 50 MG TABLET (FP) PO SCH (10:40)
--- NOTE | 2019-06-11 12:42 | PN ---
S CIWA - CIWA Score Nausea/Vomitin-No Nausea/No Vomiting Muscle Tremors: 2 Anxiety: 3 Agitation: 1-Slight > Activity Paroxysmal Sweats: 3 Orientation: 0-Oriented Tacttile Disturbances: 0-None Auditory Disturbances: 0-None Visual Disturbances: 0-None Headache: 2-Mild CIWA-Ar Total Score: 11 S Progress Note (SOAP) Subjective: c/o anxiety, sweats, mild shakes, and headache. Objective: 06/11/19 12:42 Vital Signs 06/11/19 06/11/19 06:00 09:21 Temperature 97.9 F 97.5 F L Pulse Rate 58 L 68 Respiratory 16 18 Rate Blood Pressure 97/58 L 104/73 Lab Results WBC 5.4 K/mm3 (4.0-10.0) 06/10/19 08:30 RBC 4.11 M/mm3 (3.60-5.2) 06/10/19 08:30 Hgb 12.7 GM/dL (10.7-15.3) 06/10/19 08:30 Hct 36.9 % (32.4-45.2) 06/10/19 08:30 MCV 89.8 fl (80-96) 06/10/19 08:30 MCHC 34.4 g/dl (32.0-36.0) 06/10/19 08:30 RDW 12.9 % (11.6-15.6) 06/10/19 08:30 Plt Count 251 K/MM3 (134-434) 06/10/19 08:30 Sodium 143 mmol/L (136-145) 06/10/19 08:30 Potassium 3.7 mmol/L (3.5-5.1) 06/10/19 08:30 Chloride 106 mmol/L (98-107) 06/10/19 08:30 Carbon Dioxide 27 mmol/L (21-32) 06/10/19 08:30 Anion Gap 10 MMOL/L (8-16) 06/10/19 08:30 BUN 14.8 mg/dL (7-18) 06/10/19 08:30 Creatinine 0.9 mg/dL (0.55-1.3) 06/10/19 08:30 Random Glucose 81 mg/dL (74-106) 06/10/19 08:30 Calcium 9.0 mg/dL (8.5-10.1) 06/10/19 08:30 Labs noted. Assessment: 06/11/19 12:42 AOX3, in no acute respiratory distress. Full ROM, ambulating in the unit. Withdrawal symptoms. Plan: continue detox.
[2019-06-11] MEDS: THIAMINE HCL 100 MG TABLET (FP) PO SCH (22:22)
[2019-06-11] MEDS: QUEtiapine FUMARATE 50 MG TABLET PO SCH (22:23)
[2019-06-12] MEDS ORDERED: chlordiazePOXIDE HCL 10 MG CAPSULE PO PRN
[2019-06-12] MEDS ORDERED: METHADONE HCL 40 MG DISPERSABLE TABLET ONE (04:55)
[2019-06-12] MEDS ORDERED: METHADONE HCL 5 MG TABLET ONE (04:55)
[2019-06-12] MEDS ORDERED: METHADONE HCL 10 MG TABLET ONE (04:55)
[2019-06-12] MEDS: METHADONE 120 MG, METHADONE 10 MG, METHADONE 5 MG PO SCH (05:35)
[2019-06-12] MEDS: chlordiazePOXIDE HCL 10 MG CAPSULE PO SCH ×3 (05:36→22:48)
[2019-06-12] MEDS: SERTRALINE HCL 50 MG TABLET (FP) PO SCH (10:41)
[2019-06-12] MEDS: PRENATAL VITAMINS W/ FOLIC ACID TABLET (FP) PO SCH (10:41)
[2019-06-12] MEDS: TOPIRAMATE 100 MG TABLET PO SCH (10:41)
--- NOTE | 2019-06-12 17:43 | PN ---
S CIWA - CIWA Score Nausea/Vomitin-No Nausea/No Vomiting Muscle Tremors: None Anxiety: 3 Agitation: 2 Paroxysmal Sweats: 2 Orientation: 0-Oriented Tacttile Disturbances: 0-None Auditory Disturbances: 0-None Visual Disturbances: 0-None Headache: 0-None Present CIWA-Ar Total Score: 7 S Progress Note (SOAP) Subjective: Feels ok Objective: 06/12/19 17:40 Last Vital Signs Temp Pulse Resp BP Pulse Ox 97.5 F L 77 18 94/50 L 06/12/19 17:03 06/12/19 17:03 06/12/19 17:03 06/12/19 17:03 Hypotension noted 94/50, asymptomatic Laboratory Tests 06/09/19 06/10/19 06/10/19 17:33 08:30 08:30 WBC 5.4 RBC 4.11 Hgb 12.7 Hct 36.9 MCV 89.8 MCH 30.9 MCHC 34.4 RDW 12.9 Plt Count 251 MPV 8.5 Sodium 143 Potassium 3.7 Chloride 106 Carbon Dioxide 27 Anion Gap 10 BUN 14.8 Creatinine 0.9 Est GFR (CKD-EPI)AfAm 92.70 Est GFR (CKD-EPI)NonAf 79.98 Random Glucose 81 Calcium 9.0 Total Bilirubin 0.5 AST 12 L ALT 17 Alkaline Phosphatase 42 L Total Protein 6.8 Albumin 3.4 POC Urine HCG, Qual Negative RPR Titer T.pallidum Ab (MHA) HIV 1&2 Ag/Ab, 4th Gen TB (QFT) Incubation TB Test (QFT) Nil TB Test (QFT) Mitogen TB Test (QFT) Antigen TB Test (QFT) TB Positive Criteria 06/10/19 06/10/19 06/10/19 08:30 08:30 08:30 WBC RBC Hgb Hct MCV MCH MCHC RDW Plt Count MPV Sodium Potassium Chloride Carbon Dioxide Anion Gap BUN Creatinine Est GFR (CKD-EPI)AfAm Est GFR (CKD-EPI)NonAf Random Glucose Calcium Total Bilirubin AST ALT Alkaline Phosphatase Total Protein Albumin POC Urine HCG, Qual RPR Titer Reactive 1:1 H T.pallidum Ab (MHA) Non reactive HIV 1&2 Ag/Ab, 4th Gen Non reactive TB (QFT) Incubation TB Test (QFT) Nil 0.06 TB Test (QFT) Mitogen 7.79 TB Test (QFT) Antigen 0.21 TB Test (QFT) Negative TB Positive Criteria Labs reviewed Assessment: 06/12/19 17:41 Withdrawal sxs Hypotension noted Plan: Continue detox Patient scheduled for discharge tomorrow Hypotension: asymptomatic, encouraged PO water intake
[2019-06-12 20:55] VITALS: TEMP 96.6
[2019-06-12] MEDS: QUEtiapine FUMARATE 50 MG TABLET PO SCH (22:48)
[2019-06-12] MEDS: THIAMINE HCL 100 MG TABLET (FP) PO SCH (22:48)
[2019-06-13] MEDS ORDERED: METHADONE HCL 10 MG TABLET ONE (04:09)
[2019-06-13] MEDS ORDERED: METHADONE HCL 5 MG TABLET ONE (04:09)
[2019-06-13] MEDS ORDERED: METHADONE HCL 40 MG DISPERSABLE TABLET ONE (04:10)
[2019-06-13] MEDS ORDERED: chlordiazePOXIDE HCL 10 MG CAPSULE PO ONE (05:00)
[2019-06-13] MEDS: METHADONE 120 MG, METHADONE 10 MG, METHADONE 5 MG PO SCH (05:52)
[2019-06-13 07:24] VITALS: BP 107/51; PULSE 96
[2019-06-13] MEDS: SERTRALINE HCL 50 MG TABLET (FP) PO SCH (09:06)
[2019-06-13] MEDS: TOPIRAMATE 100 MG TABLET PO SCH (09:06)
[2019-06-13] MEDS: PRENATAL VITAMINS W/ FOLIC ACID TABLET (FP) PO SCH (09:06)
--- NOTE | 2019-06-13 10:13 | DS ---
[facility] Detox Discharge Summary Admission Date: 06/09/19 Discharge Date: 06/13/19 - History Present History: Cannabis Dependence, Cocaine Dependence, Pcp Dependence, MMTP - Physical Exam Results Vital Signs: Vital Signs Temperature 96.6 F L 06/13/19 07:23 Pulse Rate 96 H 06/13/19 07:23 Respiratory Rate 18 06/13/19 07:23 Blood Pressure 107/51 L 06/13/19 07:23 O2 Sat by Pulse Oximetry (%) Pertinent Admission Physical Exam Findings: pt arrived in withdrawals Laboratory Tests 06/09/19 06/10/19 06/10/19 17:33 08:30 08:30 WBC 5.4 RBC 4.11 Hgb 12.7 Hct 36.9 MCV 89.8 MCH 30.9 MCHC 34.4 RDW 12.9 Plt Count 251 MPV 8.5 Sodium 143 Potassium 3.7 Chloride 106 Carbon Dioxide 27 Anion Gap 10 BUN 14.8 Creatinine 0.9 Est GFR (CKD-EPI)AfAm 92.70 Est GFR (CKD-EPI)NonAf 79.98 Random Glucose 81 Calcium 9.0 Total Bilirubin 0.5 AST 12 L ALT 17 Alkaline Phosphatase 42 L Total Protein 6.8 Albumin 3.4 POC Urine HCG, Qual Negative RPR Titer T.pallidum Ab (MHA) HIV 1&2 Ag/Ab, 4th Gen TB (QFT) Incubation TB Test (QFT) Nil TB Test (QFT) Mitogen TB Test (QFT) Antigen TB Test (QFT) TB Positive Criteria 06/10/19 06/10/19 06/10/19 08:30 08:30 08:30 WBC RBC Hgb Hct MCV MCH MCHC RDW Plt Count MPV Sodium Potassium Chloride Carbon Dioxide Anion Gap BUN Creatinine Est GFR (CKD-EPI)AfAm Est GFR (CKD-EPI)NonAf Random Glucose Calcium Total Bilirubin AST ALT Alkaline Phosphatase Total Protein Albumin POC Urine HCG, Qual RPR Titer Reactive 1:1 H T.pallidum Ab (MHA) Non reactive HIV 1&2 Ag/Ab, 4th Gen Non reactive TB (QFT) Incubation TB Test (QFT) Nil 0.06 TB Test (QFT) Mitogen 7.79 TB Test (QFT) Antigen 0.21 TB Test (QFT) Negative TB Positive Criteria today pt is aaox3 ambulating no acute distress no s/s of withdrawals - Treatment Hospital Course: Detox Protocol Followed, Detoxed Safely, Responded well, Discharged Condition Good, Rehab Referral Accepted - Medication Discharge Medications: Ambulatory Orders Buspirone HCl [Buspar -] 7.5 mg PO BID 09/17/18 Sertraline HCl [Zoloft] 200 mg PO DAILY 09/17/18 Topiramate [Topamax] 100 mg PO DAILY 09/17/18 traZODone HCL [Trazodone HCl] 50 mg PO HS 09/17/18 - Diagnosis (1) Cannabis dependence Status: Chronic (2) Cocaine dependence Status: Chronic Qualifiers: Substance use status: uncomplicated Qualified Code(s): F14.20 - Cocaine dependence, uncomplicated (3) Phencyclidine dependence Status: Chronic (4) Sedative, hypnotic or anxiolytic dependence, uncomplicated Status: Chronic (5) Substance induced mood disorder Status: Acute (6) Substance-induced sleep disorder Status: Acute (7) Uncomplicated alcohol dependence Status: Chronic (8) Weight loss Status: Acute (9) Asthma Status: Chronic Qualifiers: Asthma severity: mild Asthma complication type: uncomplicated (10) Cocaine dependence Status: Chronic Qualifiers: Substance use status: uncomplicated Qualified Code(s): F14.20 - Cocaine dependence, uncomplicated (11) Depressive disorder Status: Chronic (12) Hepatitis C Status: Chronic Qualifiers: Viral hepatitis chronicity: chronic Hepatic coma status: without hepatic coma Qualified Code(s): B18.2 - Chronic viral hepatitis C (13) Insomnia Status: Chronic (14) Methadone maintenance therapy patient Status: Chronic (15) Migraine Status: Chronic (16) Nicotine dependence Status: Chronic Qualifiers: Nicotine product type: cigarettes Substance use status: uncomplicated Qualified Code(s): F17.210 - Nicotine dependence, cigarettes, uncomplicated (17) Opioid dependence on agonist therapy Status: Chronic (18) Depressed affect Status: Suspected (19) Endocarditis Status: Resolved (20) MDD (major depressive disorder) Status: Ruled-out (21) Substance induced mood disorder Status: Ruled-out - AMA Did Patient Leave Against Medical Advice: No
== END 2019-06-13 09:26 | disposition home or self-care (01) | DRG 773 ==
LOC: YASAS 13:06 → Y6N 18:42
PROVIDERS: ADMIT Surgery; ATTEND Surgery
PROC: HZ2ZZZZ Detoxification Services for Substance Abuse Treatment (ICD-10-PCS; principal; 2019-06-09)
DX: F10.230 Alcohol dependence with withdrawal, uncomplicated (principal); F11.20 Opioid dependence, uncomplicated; F16.20 Hallucinogen dependence, uncomplicated; F14.20 Cocaine dependence, uncomplicated; F12.20 Cannabis dependence, uncomplicated; F13.20 Sedative, hypnotic or anxiolytic dependence, uncomplicated; F17.210 Nicotine dependence, cigarettes, uncomplicated; F19.24 Other psychoactive substance dependence with psychoactive substance-induced mood disorder; F19.282 Other psychoactive substance dependence with psychoactive substance-induced sleep disorder; F32.9 Major depressive disorder, single episode, unspecified; G47.00 Insomnia, unspecified; J45.20 Mild intermittent asthma, uncomplicated; R63.4 Abnormal weight loss; B18.2 Chronic viral hepatitis C
CPT/HCPCS: 36415; 80053; 81025; 85027; 86480; 86593; 86780; 87389

== ENCOUNTER 2019-08-31 17:05 | Inpatient (IN) | payer OTHER ==
[2019-08-31 18:38] VITALS: BMI 18.1
--- NOTE | 2019-08-31 19:34 | HP ---
CIWA Score Nausea/Vomitin-Mild Nausea/No Vomiting Muscle Tremors: 3 Anxiety: 3 Agitation: 3 Paroxysmal Sweats: 2 Orientation: 0-Oriented Tacttile Disturbances: 0-None Auditory Disturbances: 0-None Visual Disturbances: 0-None Headache: 1-Very Mild CIWA-Ar Total Score: 13 - Admission Criteria OASAS Guidelines: Admission for Medically Managed Detox: Requires at least one of the followin. CIWA greater than 12 2. Seizures within the past 24 hours 3. Delirium tremens within the past 24 hours 4. Hallucinations within the past 24 hours 5. Acute intervention needed for co occurring medical disorder 6. Acute intervention needed for co occurring psychiatric disorder 7. Severe withdrawal that cannot be handled at a lower level of care (continued vomiting, continued diarrhea, abnormal vital signs) requiring intravenous medication and/or fluids 8. Patient presents the following: CIWA greater than 12 Admission Criteria Met: Admission criteria met Admitting History and Physical - Past Medical History ...LMP: 05/14/19 - Smoking History Smoking history: Current every day smoker Have you smoked in the past 12 months: Yes Aproximately how many cigarettes per day: 10 - Alcohol/Substance Use Hx Alcohol Use: Yes Admission [facility] Chief Complaint: here for alcohol detox Allergies/Adverse Reactions: Allergies Allergy/AdvReac Type Severity Reaction Status Date / Time No Known Allergies Allergy Verified 08/31/19 18:20 History of Present Illness: 41 yo with h/o sarcoidosis- on treatment only if she has flares, asthma- on MDI , with OUD on methadone at [facility]- dose 165mg, pt is [place], [place], here for polysubstance use- marijuana, cocaine, heroin occ, bzo and alcohol detox. Pt brought tomorrow's bottle of methadone with her- the dose in the bottle seems lower than 165mg- pt does not know what happened- states may have spilled out? 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 And topamax for migraines alcohol- 1 pint-2 pints of angelina, no h/o seizures, no DT's. cocaine- $200/day- injection, uses arms and occ on neck. MJ: $20/day xanax- occ heroin only if she misses MTD program. - Ebola screening Have you traveled outside of the country in the last 21 days: No Have you had contact with anyone from an Ebola affected area: No Do you have a fever: No - Review of Systems Constitutional: Unintentional Wgt. Loss (using cocaine, homeless) EENT: reports: No Symptoms Reported Respiratory: reports: No Symptoms reported Cardiac: reports: No Symptoms Reported GI: reports: Other (pt states not eating-depressed, using cocaine.) Musculoskeletal: reports: No Symptoms Reported Integumentary: reports: No Symptoms Reported Neuro: reports: No Symptoms reported Endocrine: reports: No Symptoms Reported Hematology: reports: No Symptoms Reported Psychiatric: reports: Anxious (take meds), Depressed Other Systems: Reviewed and Negative Patient History - Patient Medical History Hx Anemia: No Hx Asthma: Yes Hx Chronic Obstructive Pulmonary Disease (COPD): No Hx Cancer: No Hx Cardiac Disorders: No Hx Congestive Heart Failure: No Hx Hypertension: No Hx Hypercholesterolemia: No Hx Pacemaker: No HX Cerebrovascular Accident: No Hx Seizures: No Hx Dementia: No Hx Diabetes: No Hx Gastrointestinal Disorders: No Hx Liver Disease: No Hx Genitourinary Disorders: No Hx Sexually Transmitted Disorders: No Hx Renal Disease (ESRD): No Hx Thyroid Disease: No Hx Human Immunodeficiency Virus (HIV): No Hx Hepatitis C: Yes (cured) Hx Depression: Yes Hx Suicide Attempt: No Hx Bipolar Disorder: No Hx Schizophrenia: No Other Medical History: migraines, sarcoidosis - Patient Surgical History Past Surgical History: No Hx Neurologic Surgery: No Hx Cataract Extraction: No Hx Cardiac Surgery: No Hx Lung Surgery: No Hx Breast Surgery: No Hx Breast Biopsy: No Hx Abdominal Surgery: No Hx Appendectomy: No Hx Cholecystectomy: No Hx Genitourinary Surgery: No Hx Section: No Hx Orthopedic Surgery: No Other Surgical History: c-sections Anesthesia Reaction: No - PPD History Date: 09/19/18 - Reproductive History Last Menstrual Period: 05/14/19 - Smoking Cessation Smoking history: Current every day smoker Have you smoked in the past 12 months: Yes Aproximately how many cigarettes per day: 5 Hx Chewing Tobacco Use: No Initiated information on smoking cessation: Yes 'Breaking Loose' booklet given: 08/31/19 - Substance & Tx. History Hx Alcohol Use: Yes Hx Substance Use: Yes Substance Use Type: Alcohol, Cocaine, Heroin, Marijuana, Opiates, Prescribed - Substances abused Heroin Substance route: Injection Frequency: 1-3 times last 30 days Amount used: 20 Age of first use: 16 Date of last use: 08/29/19 Cocaine Substance route: Injection Frequency: Daily Amount used: 150 to 200 dollars Age of first use: 14 Date of last use: 08/30/19 PCP Substance route: Smoking Frequency: 1-2 times per week Amount used: 10 dollars Age of first use: 17 Date of last use: 05/02/19 Alcohol Substance route: Oral Frequency: Daily Amount used: 1 pint of vodka Age of first use: 12 Date of last use: 08/31/19 Alprazolam (Xanax) Substance route: Oral Frequency: 3-6 times per week Amount used: 2 mg Age of first use: 29 Date of last use: 08/29/19 Marijuana/Hashish Substance route: Smoking Frequency: Daily Amount used: 1 blunt Age of first use: 9 Date of last use: 08/31/19 Admission Physical Exam [facility] - Vital Signs Vital Signs: Vital Signs - 24 hr 08/31/19 18:20 Temperature 97.7 F Pulse Rate 69 Respiratory 18 Rate Blood Pressure 95/61 - Physical General Appearance: Yes: Disheveled, Thin HEENTM: Yes: Within Normal Limits, Hearing grossly Normal, Normal ENT Inspection , Normal Voice, ARMANDO, Pharynx Normal Respiratory: Yes: Within Normal Limits, Lungs Clear Neck: Yes: Within Normal Limits, No masses,lesions,Nodules Cardiology: Yes: Within Normal Limits (no murmur), Regular Rate Abdominal: Yes: Within Normal Limits, Other (belly button piercing) Back: Yes: Within Normal Limits, Normal Inspection Musculoskeletal: Yes: Within Normal Limits Extremities: Yes: Within Normal Limits Neurological: Yes: Within Normal Limits, Fully Oriented, Alert Integumentary: Yes: Within Normal Limits, Track Parmar (of arms and neck) - Diagnostic (1) Cannabis dependence Current Visit: No Status: Chronic (2) Cocaine dependence Current Visit: No Status: Chronic Qualifiers: Substance use status: uncomplicated Qualified Code(s): F14.20 - Cocaine dependence, uncomplicated (3) Depressive disorder Current Visit: No Status: Chronic (4) Methadone maintenance therapy patient Current Visit: No Status: Chronic (5) Migraine Current Visit: No Status: Chronic (6) Nicotine dependence Current Visit: No Status: Chronic Qualifiers: Nicotine product type: cigarettes Substance use status: uncomplicated Qualified Code(s): F17.210 - Nicotine dependence, cigarettes, uncomplicated (7) Opioid dependence on agonist therapy Current Visit: No Status: Chronic (8) Sedative, hypnotic or anxiolytic dependence, uncomplicated Current Visit: No Status: Chronic (9) Uncomplicated alcohol dependence Current Visit: No Status: Chronic Breathalyzer - Breathalyzer Breathalyzer: 0 Urine Drug Screen - Test Device Lot number: [id number] Expiration date: 05/04/21 - Control Is test valid?: Yes - Results Drug screen NEGATIVE: No Urine drug screen results: THC-Marijuana, ERASMO-Cocaine, MOP-Opiates, MTD- Methadone, BZO-Benzodiazepines Inpatient Rehab Admission - Rehab Decision to Admit Inpatient rehab admission?: No
[2019-08-31] MEDS ORDERED: ACETAMINOPHEN 325 MG TABLET (FP) PO PRN ×2 (19:43)
[2019-08-31] MEDS ORDERED: MENTHOL/PHENOL 1 EACH UD MM PRN (19:43)
[2019-08-31] MEDS ORDERED: BISMUTH SUBSALICYLATE 524 MG/30 ML UD PO PRN (19:43)
[2019-08-31] MEDS ORDERED: MAGNESIUM CITRATE 300 ML BOTTLE PO PRN (19:43)
[2019-08-31] MEDS ORDERED: MAG HYDROX/AL HYDROX/SIMETH 30 ML UNIT-DOSE CUP PO PRN (19:43)
[2019-08-31] MEDS ORDERED: NICOTINE POLACRILEX 2 MG GUM BUC PRN (19:43)
[2019-08-31] MEDS ORDERED: MAGNESIUM HYDROX 2400MG/30ML ORAL SUSPENSION 30 ML CUP PO PRN (19:43)
[2019-08-31] MEDS ORDERED: METHOCARBAMOL 500 MG TABLET PO PRN (19:43)
[2019-08-31] MEDS ORDERED: hydrOXYzine PAMOATE 25 MG CAPSULE (FP) PO PRN (19:43)
[2019-08-31] MEDS ORDERED: LORazepam 1 MG TABLET PO PRN (19:43)
[2019-08-31] MEDS ORDERED: IBUPROFEN 400 MG TABLET (FP) PO PRN (19:43)
--- NOTE | 2019-08-31 20:52 | PN ---
[facility] Progress Note Note: Received a call from the nurse that patient who was just sent to the floor refused to be admitted to the floor and wants to leave. Patient reports that she saw a resident who lives in her neighborhood and well known to her. She feels unsafe staying [address]. Patient is to be reassigned to [address].
[2019-08-31] MEDS ORDERED: MELATONIN 5 MG TABLETS PO PRN (22:00)
[2019-08-31] MEDS ORDERED: traZODone HCL 50 MG TABLET (FP) PO SCH (22:00)
[2019-08-31] MEDS ORDERED: THIAMINE HCL 100 MG TABLET (FP) PO SCH (22:00)
[2019-08-31] MEDS: LORazepam 1 MG TABLET PO SCH (22:20)
[2019-08-31] MEDS ORDERED: LORazepam 2 MG TABLET PO SCH (23:00)
[2019-09-01] MEDS: LORazepam 1 MG TABLET PO SCH (05:45)
[2019-09-01 09:12] VITALS: BP 93/64; PULSE 66; TEMP 97
--- NOTE | 2019-09-01 09:44 | CONSULT ---
[facility] Psychiatric Consult - Data Date of interview: 09/01/19 Admission source: [facility] Identifying data: As per nursing staff patient left unit AMA. Unable to complete psychiatric consultation.
[2019-09-01] MEDS ORDERED: SERTRALINE HCL 50 MG TABLET (FP) PO SCH (10:00)
[2019-09-01] MEDS ORDERED: PRENATAL VITAMINS W/ FOLIC ACID TABLET (FP) PO SCH (10:00)
--- NOTE | 2019-09-01 10:12 | DS ---
[facility] Detox Discharge Summary Admission Date: 08/31/19 Discharge Date: 09/01/19 - History Present History: Alcohol Dependence, Sedative Dependence Additional Comments: 39 years old female admitted on 08/31/19 for alcohol and benzo withdrawal sx management treated with ativan detox regimen patient transferred from [facility] due to "knowing someone in [address]" patient is alert oriented x 3 speech clearly coherently steady gait ate breakfast social with peers particularly with one male peer patient insists to leave the detox unit that she demands 165mg of methadone refuses 30 mg of methadone that take home bottle appears 3-4ml of red liquid methadone left in take home bottle discuss the risks of methadone overdose patient stated "it is the way they gave me to take home" patient insists to leave the detox unit that refuses further discussion with staff patient refuses ciwa refuses exist physical examination - Physical Exam Results Vital Signs: Vital Signs Temperature 97.0 F L 09/01/19 09:12 Pulse Rate 66 09/01/19 09:12 Respiratory Rate 18 09/01/19 09:12 Blood Pressure 93/64 09/01/19 09:12 O2 Sat by Pulse Oximetry (%) Pertinent Admission Physical Exam Findings: alcohol and benzo withdrawal sx lab pending - Treatment Hospital Course: Detox Protocol Followed, Responded well Patient has Accepted a Rehab Referral to: return to methaodne program - Medication Discharge Medications: Ambulatory Orders Buspirone HCl [Buspar -] 7.5 mg PO BID 09/17/18 Sertraline HCl [Zoloft] 100 mg PO DAILY 09/17/18 Topiramate [Topamax] 20 mg PO DAILY 09/17/18 traZODone HCL [Trazodone HCl] 50 mg PO HS 09/17/18 - Diagnosis (1) Substance induced mood disorder Current Visit: Yes Status: Suspected (2) Weight loss Current Visit: Yes Status: Acute (3) Asthma Current Visit: Yes Status: Chronic Qualifiers: Asthma severity: mild Asthma persistence: intermittent Asthma complication type: with status asthmaticus Qualified Code(s): J45.22 - Mild intermittent asthma with status asthmaticus (4) Hepatitis C Current Visit: Yes Status: Chronic Qualifiers: Viral hepatitis chronicity: chronic Hepatic coma status: without hepatic coma Qualified Code(s): B18.2 - Chronic viral hepatitis C (5) Methadone maintenance therapy patient Current Visit: Yes Status: Chronic (6) Nicotine dependence Current Visit: Yes Status: Acute Qualifiers: Nicotine product type: cigarettes Substance use status: in withdrawal Qualified Code(s): F17.213 - Nicotine dependence, cigarettes, with withdrawal (7) Sedative, hypnotic or anxiolytic dependence, uncomplicated Current Visit: Yes Status: Acute (8) Substance induced mood disorder Current Visit: Yes Status: Suspected - AMA Did Patient Leave Against Medical Advice: Yes
[2019-09-01 13:02] LABS: HEMATOCRIT 35.3 % (32.4-45.2); HEMOGLOBIN 11.5 GM/dL (10.7-15.3); MCH 29.3 pg (25.7-33.7); MCHC 32.6 g/dl (32.0-36.0); MEAN PLT VOLUME 8.3 fl (7.5-11.1); PLATELET COUNT 345 K/MM3 (134-434); RBC 3.92 M/mm3 (3.60-5.2); RDW 14.6 % (11.6-15.6); WHITE BLOOD COUNT 5.6 K/mm3 (4.0-10.0)
[2019-09-01 13:49] LABS: ALBUMIN 2.9 g/dl (3.4-5.0); BILIRUBIN,TOTAL 1.1 mg/dL (0.2-1); BLOOD UREA NITROGEN 16.6 mg/dL (7-18); CREATININE 0.8 mg/dL (0.55-1.3); POTASSIUM 3.9 mmol/L (3.5-5.1); TOT PROT 6.8 g/dl (6.4-8.2)
[2019-09-02] MEDS ORDERED: LORazepam 1 MG TABLET PO SCH (05:00)
[2019-09-02 09:33] LABS: RPR REACTIVE 1:1 (NONREACTIVE)
[2019-09-02 12:45] LABS: TREPONEMA ANTIBODY NON REACTIVE (NONREACTIVE)
[2019-09-03] MEDS ORDERED: LORazepam 0.5 MG TABLET PO PRN
[2019-09-03] MEDS ORDERED: LORazepam 0.5 MG TABLET PO SCH (05:00)
[2019-09-04] MEDS ORDERED: LORazepam 0.5 MG TABLET PO ONE (05:00)
== END 2019-09-01 09:42 | disposition left against medical advice (07) | DRG 770 ==
LOC: YASAS 17:05 → Y6N 19:59 → Y3N 21:29
PROVIDERS: ADMIT Allergy & Immunology; ATTEND Allergy & Immunology
PROC: HZ2ZZZZ Detoxification Services for Substance Abuse Treatment (ICD-10-PCS; principal; 2019-08-31)
DX: F10.230 Alcohol dependence with withdrawal, uncomplicated (principal); F13.230 Sedative, hypnotic or anxiolytic dependence with withdrawal, uncomplicated; F11.20 Opioid dependence, uncomplicated; F14.20 Cocaine dependence, uncomplicated; F12.20 Cannabis dependence, uncomplicated; F17.213 Nicotine dependence, cigarettes, with withdrawal; F19.24 Other psychoactive substance dependence with psychoactive substance-induced mood disorder; F32.9 Major depressive disorder, single episode, unspecified; G43.909 Migraine, unspecified, not intractable, without status migrainosus; J45.22 Mild intermittent asthma with status asthmaticus; R63.4 Abnormal weight loss; B18.2 Chronic viral hepatitis C; Z68.1 Body mass index [BMI] 19.9 or less, adult; Z86.79 Personal history of other diseases of the circulatory system; Z86.14 Personal history of Methicillin resistant Staphylococcus aureus infection
CPT/HCPCS: 36415; 80053; 81025; 85027; 86593; 86780